=== PATIENT | male | born 1985 | race Caucasian/White ===

== ENCOUNTER 2018-01-08 10:39 | Emergency (ER) | payer SELFPAY ==
[~2018-01-08] VITALS: Ht 182.9 cm; Wt 90.7 kg
--- NOTE | 2018-01-08 10:47 | ER Report ---
History and Physical Time Seen By MD: 10:45 HPI/ROS CHIEF COMPLAINT: Right-sided chest pain HISTORY OF PRESENT ILLNESS: Patient is a 32-year-old male who presents emergency department with complaint of right-sided chest pain right upper quadrant and epigastric discomfort. The pain does radiate to the shoulder and is associated with nausea and vomiting. He denies fevers or chills. He's had no prior abdominal surgeries. He denies any difficulty breathing. Denies diarrhea. REVIEW OF SYSTEMS: Constitutional: No fever, no chills. Eyes: No discharge. ENT: No sore throat. Cardiovascular: Right-sided chest pain Respiratory: No cough, no shortness of breath. Gastrointestinal: Right upper quadrant abdominal and epigastric discomfort Genitourinary: No hematuria. Musculoskeletal: No back pain. Skin: No rashes. Neurological: No headache. Allergies: Coded Allergies: No Known Drug Allergies (Unverified , 01/08/18) Home Meds Active Scripts Ondansetron Hcl (ZOFRAN) 4 Mg Tablet, 4 MG PO Q8H for Nausea, #15 TAB 0 Refills Prov:MARYANA PERSON MD 01/08/18 Pantoprazole Sodium (PANTOPRAZOLE SODIUM) 40 Mg Tablet.dr, 40 MG PO QDAY, #30 TAB.SR 0 Refills Prov:MARYANA PERSON MD 01/08/18 Hydrocodone Bit/Acetaminophen (HYDROCODON-ACETAMINOPHEN 5-325) 1 Each Tablet, 1 EACH PO Q4-6H Y for PAIN, #12 TAB 0 Refills TAKE ONE TABLET BY MOUTH EVERY 4-6 HOURS NEEDED FOR PAIN Prov:MARYANA PERSON MD 01/08/18 Constitutional Physical Exam General/Constitutional: Patient is awake, alert, nontoxic and in no acute respiratory distress. Head: Normocephalic and atraumatic. Eyes: Conjunctival clear, Pupils are equal and reactive to light.Sclera are clear and anicteric. Ears:External canals are clear. Tympanic membranes are clear with normal landmarks and light reflex. Nares: No rhinorrhea or bleeding. Turbinates are pink and moist. Oropharyngeal: Mucous membranes are moist. Neck: Supple, no adenopathy. Cardiovascular: Heart is regular rate and rhythm without audible murmurs, rubs or gallops. Pulmonary: Lungs are clear to auscultation bilaterally. There are no wheezes, rales, or rhonchi. Chest rise is symmetrical Abdomen: Epigastric and right upper quadrant tenderness without peritoneal signs Extremities: No gross deformities, No peripheral cyanosis. Able to move all 4 extremities. Neuro: Alert and oriented X3, Skin: No rashes, skin is warm dry and well perfused. Medical Decision Making Data Points Laboratory Hematology Test 01/08/18 10:53 01/08/18 12:24 Red Blood Count 6.21 M/uL (4.00-5.60) Mean Corpuscular Volume 89.0 fL (80.0-96.0) Mean Corpuscular Hemoglobin 31.4 pg (26.0-33.0) Mean Corpuscular Hemoglobin Concent 35.3 g/dL (32.0-36.0) Red Cell Distribution Width 13.3 % (11.5-14.5) Mean Platelet Volume 8.8 fL (7.2-11.1) Neutrophils (%) (Auto) 64.4 % (39.4-72.5) Lymphocytes (%) (Auto) 26.2 % (17.6-49.6) Monocytes (%) (Auto) 6.9 % (4.1-12.4) Eosinophils (%) (Auto) 1.7 % (0.4-6.7) Basophils (%) (Auto) 0.8 % (0.3-1.4) Nucleated RBC Relative Count (auto) 0.1 /100WBC Neutrophils # (Auto) 7.4 K/uL (2.0-7.4) Lymphocytes # (Auto) 3.0 K/uL (1.3-3.6) Monocytes # (Auto) 0.8 K/uL (0.3-1.0) Eosinophils # (Auto) 0.2 K/uL (0.0-0.5) Basophils # (Auto) 0.1 K/uL (0.0-0.1) Nucleated RBC Absolute Count (auto) 0.01 K/uL Sodium Level 139 mmol/L (137-145) Potassium Level 4.6 mmol/L (3.5-5.0) Chloride Level 95 mmol/L (98-107) Carbon Dioxide Level 27 mmol/L (22-30) Blood Urea Nitrogen 18 mg/dl (9-21) Creatinine 1.10 mg/dl (0.66-1.25) Glomerular Filtration Rate Calc > 60.0 Random Glucose 100 mg/dl (75-110) Calcium Level 11.6 mg/dl (8.4-10.2) Total Bilirubin 1.0 mg/dl (0.2-1.3) Aspartate Amino Transf (AST/SGOT) 29 U/L (0-35) Alanine Aminotransferase (ALT/SGPT) 41 U/L (0-56) Alkaline Phosphatase 112 U/L (0-126) Troponin I < 0.012 ng/ml Total Protein 9.3 gm/dl (6.3-8.2) Albumin 5.0 g/dl (3.5-5.0) Lipase 73 U/L (23-300) Helicobacter pylori IgG Antibody Negative (NEGATIVE) Urine Color Yellow Urine Clarity Slightly-cloudy Urine pH 9.0 pH (4.8-9.5) Urine Specific [place] 1.019 Urine Protein 30 mg/dL (NEGATIVE) Urine Glucose (UA) Negative mg/dL (NEGATIVE) Urine Ketones Trace mg/dL (NEGATIVE) Urine Blood Negative (NEGATIVE) Urine Nitrite Negative (NEGATIVE) Urine Bilirubin Negative (NEGATIVE) Urine Urobilinogen Negative mg/dL (0.2-1.9) Urine Leukocyte Esterase Negative (NEGATIVE) Urine RBC <1 /HPF (0-2/HPF) Urine WBC <1 /HPF (0-5/HPF) Urine Squamous Epithelial Cells None /LPF (</=FEW) Urine Bacteria Negative /HPF (NONE-FEW) Urine Mucus None /HPF (NONE-FEW) Chemistry Test 01/08/18 10:53 01/08/18 12:24 White Blood Count 11.6 k/uL (4.5-11.0) Red Blood Count 6.21 M/uL (4.00-5.60) Hemoglobin 19.5 g/dL (14.0-18.0) Hematocrit 55.2 % (42.0-52.0) Mean Corpuscular Volume 89.0 fL (80.0-96.0) Mean Corpuscular Hemoglobin 31.4 pg (26.0-33.0) Mean Corpuscular Hemoglobin Concent 35.3 g/dL (32.0-36.0) Red Cell Distribution Width 13.3 % (11.5-14.5) Platelet Count 236 K/uL (150-450) Mean Platelet Volume 8.8 fL (7.2-11.1) Neutrophils (%) (Auto) 64.4 % (39.4-72.5) Lymphocytes (%) (Auto) 26.2 % (17.6-49.6) Monocytes (%) (Auto) 6.9 % (4.1-12.4) Eosinophils (%) (Auto) 1.7 % (0.4-6.7) Basophils (%) (Auto) 0.8 % (0.3-1.4) Nucleated RBC Relative Count (auto) 0.1 /100WBC Neutrophils # (Auto) 7.4 K/uL (2.0-7.4) Lymphocytes # (Auto) 3.0 K/uL (1.3-3.6) Monocytes # (Auto) 0.8 K/uL (0.3-1.0) Eosinophils # (Auto) 0.2 K/uL (0.0-0.5) Basophils # (Auto) 0.1 K/uL (0.0-0.1) Nucleated RBC Absolute Count (auto) 0.01 K/uL Glomerular Filtration Rate Calc > 60.0 Calcium Level 11.6 mg/dl (8.4-10.2) Total Bilirubin 1.0 mg/dl (0.2-1.3) Aspartate Amino Transf (AST/SGOT) 29 U/L (0-35) Alanine Aminotransferase (ALT/SGPT) 41 U/L (0-56) Alkaline Phosphatase 112 U/L (0-126) Troponin I < 0.012 ng/ml Total Protein 9.3 gm/dl (6.3-8.2) Albumin 5.0 g/dl (3.5-5.0) Lipase 73 U/L (23-300) Helicobacter pylori IgG Antibody Negative (NEGATIVE) Urine Color Yellow Urine Clarity Slightly-cloudy Urine pH 9.0 pH (4.8-9.5) Urine Specific [place] 1.019 Urine Protein 30 mg/dL (NEGATIVE) Urine Glucose (UA) Negative mg/dL (NEGATIVE) Urine Ketones Trace mg/dL (NEGATIVE) Urine Blood Negative (NEGATIVE) Urine Nitrite Negative (NEGATIVE) Urine Bilirubin Negative (NEGATIVE) Urine Urobilinogen Negative mg/dL (0.2-1.9) Urine Leukocyte Esterase Negative (NEGATIVE) Urine RBC <1 /HPF (0-2/HPF) Urine WBC <1 /HPF (0-5/HPF) Urine Squamous Epithelial Cells None /LPF (</=FEW) Urine Bacteria Negative /HPF (NONE-FEW) Urine Mucus None /HPF (NONE-FEW) Urinalysis Test 01/08/18 12:24 Urine Color Yellow Urine Clarity Slightly-cloudy Urine pH 9.0 pH (4.8-9.5) Urine Specific [place] 1.019 Urine Protein 30 mg/dL (NEGATIVE) Urine Glucose (UA) Negative mg/dL (NEGATIVE) Urine Ketones Trace mg/dL (NEGATIVE) Urine Blood Negative (NEGATIVE) Urine Nitrite Negative (NEGATIVE) Urine Bilirubin Negative (NEGATIVE) Urine Urobilinogen Negative mg/dL (0.2-1.9) Urine Leukocyte Esterase Negative (NEGATIVE) Urine RBC <1 /HPF (0-2/HPF) Urine WBC <1 /HPF (0-5/HPF) Urine Squamous Epithelial Cells None /LPF (</=FEW) Urine Bacteria Negative /HPF (NONE-FEW) Urine Mucus None /HPF (NONE-FEW) EKG/Imaging EKG Interpretation EKG shows normal sinus rhythm with ventricular rate of 85 bpm Monitor Interpretation: Normal Sinus Rhythm Imaging FACILITY: [facility] [place] PATIENT NAME: Charbel Jamison : 1985 MR: [id number] V: [id number] EXAM DATE: ORDERING PHYSICIAN: MARYANA PERSON TECHNOLOGIST: Location: [facility] - [place] Patient: Cahrbel Jamison : 1985 Visit/Account:[id number] Date of Sevice: 01/08/2018 Abdominal ultrasound Indication: Right upper quadrant pain Comparison: None Technique: Multiple grayscale, color and Doppler sonographic images were obtained for an ultrasound of the right upper quadrant. Findings: The liver is normal in size measuring 16.7 cm. Overall, there is increased echotexture throughout the hepatic parenchyma. There is a focal area of decreased attenuation near the gallbladder which likely represents focal fatty sparing. There is normal hepatopedal portal venous flow. Gallbladder wall thickness is 2 mm with no evidence of shadowing stone or sludge within the gallbladder lumen. Negative sonographic Mcdowell's sign reported by the technologist. Common duct measures 5 mm in maximum diameter with no evidence of shadowing stone. The pancreas is obscured due to overlying bowel gas. Abdominal aorta and IVC are patent and unremarkable. The right kidney is normal in size, contour, and echotexture measuring 10.8 cm x 5.2 cm x 5.6 cm. IMPRESSION: 1. Hepatic steatosis. 2. Nonvisualization of pancreas due to overlying bowel gas. Report Dictated By: Neftali Rizzo DO at 01/08/2018 12:09 PM Report E-Signed By: Neftali Rizzo DO at 01/08/2018 12:12 PM WSN:[facility] FACILITY: [facility] [place] PATIENT NAME: Charbel Jamison : 1985 MR: [id number] V: [id number] EXAM DATE: ORDERING PHYSICIAN: MARYANA PERSON TECHNOLOGIST: Location: [facility] [place] Patient: Charbel Jamison : 1985 Visit/Account:[id number] Date of Sevice: 01/08/2018 Technique: CHEST PA AND LAT HISTORY: Pain COMPARISON: None available Findings: The lungs are clear. No pleural effusion or pneumothorax. The cardiomediastinal silhouette is unremarkable. Impression: 1. No acute cardiopulmonary process. Report Dictated By: Neftali Rizzo DO at 01/08/2018 1:00 PM Report E-Signed By: Neftali Rizzo DO at 01/08/2018 1:00 PM WSN:[facility] ED Course/Re-evaluation Clinical Indication for ER IV: Hydration, IV Access ED Course Patient with epigastric right upper quadrant pain that radiates to the shoulder causing nausea with vomiting. Plan at this time will be abdominal workup including CBC CMP lipase will get a right upper quadrant ultrasound looking for evidence of cholecystitis we will give IV fluids pain medicine and antiemetics. Re-evaluation 01/08/2018 12:08:23 pm pain improved after 4 mg of morphine. Awaiting pending imaging studies at this time Decision to Disposition Date: Jan 08, 2018 Decision to Disposition Time: 14:25 Depart Departure Latest Vital Signs Impression: Primary Impression: Gastritis Condition: Improved Disposition: HOME OR SELF-CARE Referrals: CAROLYN SAMANIEGO MD Schedule follow-up appointment with Dr. Samaniego if your symptoms persist. New Scripts Ondansetron Hcl (ZOFRAN) 4 Mg Tablet 4 MG PO Q8H for Nausea, #15 TAB 0 Refills Prov: MARYANA PERSON MD 01/08/18 Pantoprazole Sodium (PANTOPRAZOLE SODIUM) 40 Mg Tablet.dr 40 MG PO QDAY, #30 TAB.SR 0 Refills Prov: MARYANA PERSON MD 01/08/18 Hydrocodone Bit/Acetaminophen (HYDROCODON-ACETAMINOPHEN 5-325) 1 Each Tablet 1 EACH PO Q4-6H Y for PAIN, #12 TAB 0 Refills TAKE ONE TABLET BY MOUTH EVERY 4-6 HOURS NEEDED FOR PAIN Prov: MARYANA PERSON MD 01/08/18 Departure Forms: ER Transition Record, Medications Reconciliation, Off Work/ School Form, School or Work Release?: Work Number of days to be released: 1 Patient Portal Information Patient Instructions: Gastritis (ED) Problem Qualifiers Primary Impression: Gastritis Gastritis type: unspecified gastritis Chronicity: acute Gastritis bleeding : without bleeding Qualified Codes: K29.00 - Acute gastritis without bleeding MARYANA PERSON MD Jan 08, 2018 10:47
[2018-01-08] MEDS ORDERED: NS(*) 0.9% 1000 ML BAG 1,000 ML IV ONE (10:51)
[2018-01-08] MEDS ORDERED: MORPHINE 4 MG/ML SDV IVP ONE ×2 (10:55→13:00)
[2018-01-08] MEDS ORDERED: ONDANSETRON 4 MG/2 ML VIAL IVP ONE ×2 (10:55→13:00)
--- NOTE | 2018-01-08 11:04 | EKG ---
FACILITY: [facility] - [place] PATIENT NAME: TENNILLE HILARIO : [id number] MR: [id number] V: [id number] EXAM DATE: ORDERING PHYSICIAN: MARYANA PERSON TECHNOLOGIST: ROCÍO Weinstein Reason : CP Blood Pressure : / mmHG Vent. Rate : 085 BPM Atrial Rate : 085 BPM P-R Int : 152 ms QRS Dur : 090 ms QT Int : 332 ms P-R-T Axes : 054 060 041 degrees QTc Int : 395 ms Sinus rhythm with premature atrial complexes Nonspecific ST findings inferolateral leads No previous ECGs available Confirmed by YULISA HERNANDEZ ([id number]) on 01/09/2018 6:02:39 AM Referred By: RAZA Confirmed By:YULISA HERNANDEZ
[2018-01-08 11:09] LABS: PLATELET COUNT, AUTOMATED 236 K/uL (150-450)
--- NOTE | 2018-01-08 12:16 | RADIOLOGY IMAGING REPORT ---
[place] [facility] [place] NAME: Charbel Jamison : 1985 MR: [id number] V: [id number] EXAM DATE: ORDERING PHYSICIAN: MARYANA PERSON TECHNOLOGIST: Location: [facility] Patient: Charbel Jamison : 1985 Visit/Account:[id number] Date of Sevice: 01/08/2018 Abdominal ultrasound Indication: Right upper quadrant pain Comparison: None Technique: Multiple grayscale, color and Doppler sonographic images were obtained for an ultrasound o f the right upper quadrant. Findings: The liver is normal in size measuring 16.7 cm. Overall, there is increased echotexture throughout th e hepatic parenchyma. There is a focal area of decreased attenuation near the gallbladder which like ly represents focal fatty sparing. There is normal hepatopedal portal venous flow. Gallbladder wall thickness is 2 mm with no evidence of shadowing stone or sludge within the gallbladd er lumen. Negative sonographic Mcdowell's sign reported by the technologist. Common duct measures 5 mm in maximum diameter with no evidence of shadowing stone. The pancreas is obscured due to overlying bowel gas. Abdominal aorta and IVC are patent and unremarkable. The right kidney is normal in size, contour, and echotexture measuring 10.8 cm x 5.2 cm x 5.6 cm. IMPRESSION: 1. Hepatic steatosis. 2. Nonvisualization of pancreas due to overlying bowel gas. Report Dictated By: Neftali Rizzo DO at 01/08/2018 12:09 PM Report E-Signed By: Netfali Rizzo DO at 01/08/2018 12:12 PM WSN:[id number]
[2018-01-08] MEDS ORDERED: IOPAMIDOL 76% 75 ML INFUS BTL 75 ML ONE (12:45)
[2018-01-08] MEDS ORDERED: NS 0.9% 20 ML SDV 40 ML ONE (12:46)
--- NOTE | 2018-01-08 13:04 | RADIOLOGY IMAGING REPORT ---
FACILITY: [facility] - [place] PATIENT NAME: Charbel Jamison : 1985 MR: [id number] V: [id number] EXAM DATE: ORDERING PHYSICIAN: MARYANA PERSON TECHNOLOGIST: Location: [facility] - [place] Patient: Charbel Jamison : 1985 Visit/Account:[id number] Date of Sevice: 01/08/2018 Technique: CHEST PA AND LAT HISTORY: Pain COMPARISON: None available Findings: The lungs are clear. No pleural effusion or pneumothorax. The cardiomediastinal silhouett e is unremarkable. Impression: 1. No acute cardiopulmonary process. Report Dictated By: Neftali Rizzo DO at 01/08/2018 1:00 PM Report E-Signed By: Neftali Rizzo DO at 01/08/2018 1:00 PM WSN:[id number]
[2018-01-08] MEDS ORDERED: PANTOPRAZOLE SOD 40 MG IV VIAL IVP ONE (13:10)
[2018-01-08] MEDS ORDERED: MAG HYD/AL HYD/SIMETH 30ML UDC PO ONE (13:10)
[2018-01-08] MEDS ORDERED: PANT40TA65 PO (14:18)
[2018-01-08] MEDS ORDERED: LOR5/325 PO (14:18)
[2018-01-08] MEDS ORDERED: ONDA4TAB97 PO (14:18)
--- NOTE | 2018-01-08 14:24 | RADIOLOGY IMAGING REPORT ---
FACILITY: [facility] PATIENT NAME: Charbel Jamison : 1985 MR: [id number] V: [id number] EXAM DATE: ORDERING PHYSICIAN: MARYANA PERSON TECHNOLOGIST: Location: [facility] Patient: Charbel Jamison : 1985 Visit/Account:[id number] Date of Sevice: 01/08/2018 EXAMINATION: CT abdomen and pelvis with contrast COMPARISON: None. HISTORY: Abdominal pain. PROCEDURE: Multiplanar contrast enhanced CT of the abdomen and pelvis with 75 mL intravenous Isovue 3 70. One of the following dose optimization techniques was utilized in the performance of this exam: A utomated exposure control; adjustment of the mA and/or kV according to the patient's size; or use of an iterative reconstruction technique. Specific details can be referenced in the facility's radiolo gy CT exam operational policy. FINDINGS: Visualized thorax: Negative. Liver: Negative. Gallbladder and biliary system: Negative Spleen: Spleen size is normal. Pancreas: Negative. Adrenal glands: Negative. Kidneys and bladder: No renal mass or evidence of an obstructive uropathy. Urinary bladder is unrema rkable. Vessels: Within normal limits. Bowel and mesentery: Stomach is within normal limits. No small bowel obstruction. Appendix is unrem arkable. Small amount of stool within the colon. No bowel or mesenteric inflammation. Pelvic organs: Negative. Lymph nodes: No adenopathy. Free air/free fluid: None. Abdominal wall and osseous structures: Mild degenerative change at the lumbosacral junction as well a s in the visualized lower thoracic spine. No acute findings. IMPRESSION: No evidence of acute disease in the abdomen or pelvis. Report Dictated By: Choco Escalante MD at 01/08/2018 1:58 PM Report E-Signed By: Choco Escalante MD at 01/08/2018 2:19 PM WSN:[id number]
[2018-01-08 14:31] VITALS: BP 136/100
== END 2018-01-08 14:38 | disposition home or self-care (01) ==
LOC: ER 10:40
DX: K29.00 Acute gastritis without bleeding (principal)
CPT/HCPCS: 71046; 74177; 76705; 81001; 83690; 84484; 85025; 86677; 93005; 96361; 96374; 96375; 96376; 99284; C9113; J2270; J2405; J7030; J7050; Q9967; 82040; 82247; 82310; 82374; 82435; 82565; 82947; 84075; 84132; 84155; 84295; 84450; 84460; 84520

== ENCOUNTER 2018-10-29 23:38 | Emergency (ER) | payer MEDICAID ==
[~2018-10-29 23:38] MED LIST: LOR5/325 PO; ONDA4TAB97 PO; PANT40TA65 PO
--- NOTE | 2018-10-30 00:38 | ER Report ---
History and Physical Time Seen By MD: 00:39 Hx. of Stated Complaint: PATIENT STATES THAT HE WENT TO THE UP STAIRS APARTMENT TO "CHECK IT OUT" AROUND 0 HIS DAUGHTER WENT WITH HIM WHEN THEY WENT INTO THE BATHROOM AND SMELLED WHAT SMELLED LIKE METH; PATIENT STATES THAT HE HAS ALSO BEEN DRINKING; 7 SHOTS OF ALCOHOL. . HPI/ROS CHIEF COMPLAINT: Possible meth exposure HISTORY OF PRESENT ILLNESS: This is a 33-year-old male. HEENT his daughter were in an apartment, smelled something funny, they open the bathroom door and found someone smoking meth. He is pressure that's what the smell was as he has used meth in the past. His daughter had trouble breathing after this and ended up here in the ER for evaluation. She is doing fine now. He is not having any major problems but one to get checked out as well. Denies any shortness of breath. No nausea or vomiting or abdominal pain. No chest pain. He does admit to drinking tonight and also has used some marijuana recently. Allergies: Coded Allergies: No Known Drug Allergies (Unverified , 10/29/18) Home Meds Active Scripts Ondansetron Hcl (ZOFRAN) 4 Mg Tablet, 4 MG PO Q8H for Nausea, #15 TAB 0 Refills Prov:MARYANA PERSON MD 01/08/18 Pantoprazole Sodium (PANTOPRAZOLE SODIUM) 40 Mg Tablet.dr, 40 MG PO QDAY, #30 TAB.SR 0 Refills Prov:MARYANA PERSON MD 01/08/18 Hydrocodone Bit/Acetaminophen (HYDROCODON-ACETAMINOPHEN 5-325) 1 Each Tablet, 1 EACH PO Q4-6H PRN for PAIN, #12 TAB 0 Refills TAKE ONE TABLET BY MOUTH EVERY 4-6 HOURS NEEDED FOR PAIN Prov:MARYANA PERSON MD 01/08/18 Reviewed Nurses Notes: Yes Hx Substance Use Disorder: No Hx Alcohol Use: No Constitutional Vital Sign - Last 24 Hours 10/29/18 10/29/18 10/29/18 10/30/18 23:38 23:43 23:45 00:00 Temp 98.7 Pulse ??? 125 Resp 17 B/P (MAP) 133/105 133/105 (114) 135/98 (110) Pulse Ox 97 O2 Delivery Room Air 10/30/18 10/30/18 10/30/18 11/30/18 00:08 00:30 00:38 00:55 Pulse 127 130 Resp 19 22 B/P (MAP) 128/110 (116) 138/106 (117) Pulse Ox 95 95 10/30/18 01:00 B/P (MAP) 135/88 (104) Physical Exam General Appearance: The patient is alert, has no immediate need for airway protection and no current signs of toxicity. Eyes: Pupils equal and round no injection. ENT: Normal oral mucosa. Moist mucous membranes. Neck: Neck is supple and non tender. Respiratory: Chest is non tender, lungs are clear to auscultation. Cardiac: regular rate and rhythm Gastrointestinal: Abdomen is soft and non tender, no masses, bowel sounds normal. Musculoskeletal: Extremities have full range of motion. Neuro: No focal neurologic deficits. Alert and oriented 3. Skin: No rashes or lesions. DIFFERENTIAL DIAGNOSIS: After history and physical exam differential diagnosis was considered for possible chemical exposure, requesting evaluation Medical Decision Making Data Points Result Diagram: 10/30/18 0017 10/30/18 0017 Laboratory Hematology Test 10/30/18 00:17 10/30/18 00:55 Red Blood Count 6.00 M/uL (4.00-5.60) Mean Corpuscular Volume 89.5 fL (80.0-96.0) Mean Corpuscular Hemoglobin 31.4 pg (26.0-33.0) Mean Corpuscular Hemoglobin Concent 35.0 g/dL (32.0-36.0) Red Cell Distribution Width 13.6 % (11.5-14.5) Mean Platelet Volume 8.8 fL (7.2-11.1) Neutrophils (%) (Auto) 62.0 % (39.4-72.5) Lymphocytes (%) (Auto) 30.1 % (17.6-49.6) Monocytes (%) (Auto) 5.6 % (4.1-12.4) Eosinophils (%) (Auto) 1.7 % (0.4-6.7) Basophils (%) (Auto) 0.6 % (0.3-1.4) Nucleated RBC Relative Count (auto) 0.1 /100WBC Neutrophils # (Auto) 5.1 K/uL (2.0-7.4) Lymphocytes # (Auto) 2.5 K/uL (1.3-3.6) Monocytes # (Auto) 0.5 K/uL (0.3-1.0) Eosinophils # (Auto) 0.1 K/uL (0.0-0.5) Basophils # (Auto) 0.1 K/uL (0.0-0.1) Nucleated RBC Absolute Count (auto) 0.01 K/uL Sodium Level 142 mmol/L (137-145) Potassium Level 4.6 mmol/L (3.5-5.0) Chloride Level 104 mmol/L (98-107) Carbon Dioxide Level 25 mmol/L (22-30) Blood Urea Nitrogen 13 mg/dl (9-21) Creatinine 1.30 mg/dl (0.66-1.25) Glomerular Filtration Rate Calc > 60.0 Random Glucose 107 mg/dl (75-110) Calcium Level 9.1 mg/dl (8.4-10.2) Total Bilirubin 0.4 mg/dl (0.2-1.3) Aspartate Amino Transf (AST/SGOT) 31 U/L (0-35) Alanine Aminotransferase (ALT/SGPT) 32 U/L (0-56) Alkaline Phosphatase 92 U/L (0-126) C-Reactive Protein 0.6 mg/dl (<1.0) Total Protein 8.7 g/dl (6.3-8.2) Albumin 4.8 g/dl (3.5-5.0) Salicylates Level < 10 mg/L Salicylate Last Dose Date unknown Acetaminophen Level < 10 ug/ml Serum Alcohol 146 mg/dl Urine Color Yellow Urine Clarity Clear Urine pH 7.0 pH (4.8-9.5) Urine Specific [place] 1.015 Urine Protein 30 mg/dL (NEGATIVE) Urine Glucose (UA) Negative mg/dL (NEGATIVE) Urine Ketones Trace mg/dL (NEGATIVE) Urine Blood Negative (NEGATIVE) Urine Nitrite Negative (NEGATIVE) Urine Bilirubin Negative (NEGATIVE) Urine Urobilinogen Negative mg/dL (0.2-1.9) Urine Leukocyte Esterase Negative (NEGATIVE) Urine RBC 1 /HPF (0-2/HPF) Urine WBC 1 /HPF (0-5/HPF) Urine Squamous Epithelial Cells None /LPF (</=FEW) Urine Transitional Epithelial Cells Few /LPF (NONE-FEW) Urine Bacteria Negative /HPF (NONE-FEW) Urine Hyaline Casts Few /LPF (NONE-FEW) Urine Mucus Few /HPF (NONE-FEW) Urine Opiates Screen Negative Urine Barbiturates Screen Negative Ur Tricyclic Antidepressants Screen Negative Urine Phencyclidine Screen Negative Urine Amphetamines Screen Negative Urine Benzodiazepines Screen Negative Urine Cocaine Screen Negative Urine Cannabinoids Screen Positive Chemistry Test 10/30/18 00:17 10/30/18 00:55 White Blood Count 8.2 k/uL (4.5-11.0) Red Blood Count 6.00 M/uL (4.00-5.60) Hemoglobin 18.8 g/dL (14.0-18.0) Hematocrit 53.7 % (42.0-52.0) Mean Corpuscular Volume 89.5 fL (80.0-96.0) Mean Corpuscular Hemoglobin 31.4 pg (26.0-33.0) Mean Corpuscular Hemoglobin Concent 35.0 g/dL (32.0-36.0) Red Cell Distribution Width 13.6 % (11.5-14.5) Platelet Count 210 K/uL (150-450) Mean Platelet Volume 8.8 fL (7.2-11.1) Neutrophils (%) (Auto) 62.0 % (39.4-72.5) Lymphocytes (%) (Auto) 30.1 % (17.6-49.6) Monocytes (%) (Auto) 5.6 % (4.1-12.4) Eosinophils (%) (Auto) 1.7 % (0.4-6.7) Basophils (%) (Auto) 0.6 % (0.3-1.4) Nucleated RBC Relative Count (auto) 0.1 /100WBC Neutrophils # (Auto) 5.1 K/uL (2.0-7.4) Lymphocytes # (Auto) 2.5 K/uL (1.3-3.6) Monocytes # (Auto) 0.5 K/uL (0.3-1.0) Eosinophils # (Auto) 0.1 K/uL (0.0-0.5) Basophils # (Auto) 0.1 K/uL (0.0-0.1) Nucleated RBC Absolute Count (auto) 0.01 K/uL Glomerular Filtration Rate Calc > 60.0 Calcium Level 9.1 mg/dl (8.4-10.2) Total Bilirubin 0.4 mg/dl (0.2-1.3) Aspartate Amino Transf (AST/SGOT) 31 U/L (0-35) Alanine Aminotransferase (ALT/SGPT) 32 U/L (0-56) Alkaline Phosphatase 92 U/L (0-126) C-Reactive Protein 0.6 mg/dl (<1.0) Total Protein 8.7 g/dl (6.3-8.2) Albumin 4.8 g/dl (3.5-5.0) Salicylates Level < 10 mg/L Salicylate Last Dose Date unknown Acetaminophen Level < 10 ug/ml Serum Alcohol 146 mg/dl Urine Color Yellow Urine Clarity Clear Urine pH 7.0 pH (4.8-9.5) Urine Specific [place] 1.015 Urine Protein 30 mg/dL (NEGATIVE) Urine Glucose (UA) Negative mg/dL (NEGATIVE) Urine Ketones Trace mg/dL (NEGATIVE) Urine Blood Negative (NEGATIVE) Urine Nitrite Negative (NEGATIVE) Urine Bilirubin Negative (NEGATIVE) Urine Urobilinogen Negative mg/dL (0.2-1.9) Urine Leukocyte Esterase Negative (NEGATIVE) Urine RBC 1 /HPF (0-2/HPF) Urine WBC 1 /HPF (0-5/HPF) Urine Squamous Epithelial Cells None /LPF (</=FEW) Urine Transitional Epithelial Cells Few /LPF (NONE-FEW) Urine Bacteria Negative /HPF (NONE-FEW) Urine Hyaline Casts Few /LPF (NONE-FEW) Urine Mucus Few /HPF (NONE-FEW) Urine Opiates Screen Negative Urine Barbiturates Screen Negative Ur Tricyclic Antidepressants Screen Negative Urine Phencyclidine Screen Negative Urine Amphetamines Screen Negative Urine Benzodiazepines Screen Negative Urine Cocaine Screen Negative Urine Cannabinoids Screen Positive Toxicology Test 10/30/18 00:17 10/30/18 00:55 Salicylates Level < 10 mg/L Salicylate Last Dose Date unknown Acetaminophen Level < 10 ug/ml Serum Alcohol 146 mg/dl Urine Opiates Screen Negative Urine Barbiturates Screen Negative Ur Tricyclic Antidepressants Screen Negative Urine Phencyclidine Screen Negative Urine Amphetamines Screen Negative Urine Benzodiazepines Screen Negative Urine Cocaine Screen Negative Urine Cannabinoids Screen Positive Urinalysis Test 10/30/18 00:55 Urine Color Yellow Urine Clarity Clear Urine pH 7.0 pH (4.8-9.5) Urine Specific [place] 1.015 Urine Protein 30 mg/dL (NEGATIVE) Urine Glucose (UA) Negative mg/dL (NEGATIVE) Urine Ketones Trace mg/dL (NEGATIVE) Urine Blood Negative (NEGATIVE) Urine Nitrite Negative (NEGATIVE) Urine Bilirubin Negative (NEGATIVE) Urine Urobilinogen Negative mg/dL (0.2-1.9) Urine Leukocyte Esterase Negative (NEGATIVE) Urine RBC 1 /HPF (0-2/HPF) Urine WBC 1 /HPF (0-5/HPF) Urine Squamous Epithelial Cells None /LPF (</=FEW) Urine Transitional Epithelial Cells Few /LPF (NONE-FEW) Urine Bacteria Negative /HPF (NONE-FEW) Urine Hyaline Casts Few /LPF (NONE-FEW) Urine Mucus Few /HPF (NONE-FEW) ED Course/Re-evaluation ED Course Labs unremarkable other than alcohol level and positive marijuana. Reviewed this with the patient. Decision to Disposition Date: Oct 30, 2018 Decision to Disposition Time: 02:08 Depart Departure Latest Vital Signs Vital Signs Date Time Temp Pulse Resp B/P (MAP) Pulse Ox O2 Delivery O2 Flow Rate FiO2 10/30/18 01:00 135/88 (104) 10/30/18 00:38 130 22 95 10/29/18 23:43 98.7 Room Air Impression: Primary Impression: Exposure to chemical irritant Condition: Improved Disposition: HOME OR SELF-CARE Additional Instructions: Labs are negative other than the positive marijuana and alcohol in your system. We do not know what the cause of the exposure, but think your report of methamphetamine is likely accurate. No problems noted on exam. GUERO BLAND MD Oct 30, 2018 00:38
[2018-10-30 00:51] LABS: PLATELET COUNT, AUTOMATED 210 K/uL (150-450)
[2018-10-30 01:00] VITALS: BP 135/88
== END 2018-10-30 02:17 | disposition home or self-care (01) ==
LOC: ER 23:53
DX: Z77.098 Contact with and (suspected) exposure to other hazardous, chiefly nonmedicinal, chemicals (principal); F10.120 Alcohol abuse with intoxication, uncomplicated; F12.90 Cannabis use, unspecified, uncomplicated; Y90.6 Blood alcohol level of 120-199 mg/100 ml
CPT/HCPCS: 36415; 80305; 81001; 85025; 86140; 99282; G0480; 80320; 80329; 82040; 82247; 82310; 82374; 82435; 82565; 82947; 84075; 84132; 84155; 84295; 84450; 84460; 84520